=== PATIENT | male | born 1975 | race African-American/Black ===

== ENCOUNTER 2018-06-19 04:43 | Inpatient (IN) | payer MEDICARE, MEDICAID ==
[~2018-06-19] VITALS: Ht 170.2 cm; Wt 77.1 kg
[2018-06-19] MEDS ORDERED: AMLO2.5T2 PO (04:58)
[2018-06-19] MEDS ORDERED: ESOM40CA PO (04:58)
[2018-06-19] MEDS ORDERED: LACT10SO8 PO (04:58)
[2018-06-19] MEDS ORDERED: AMLO2.5T3 PO (04:58)
[2018-06-19 05:18] LABS: BASOPHILS % (AUTO) 1.2 % (0.0-2.0); EOSINOPHILS % (AUTO) 0.6 % (1.0-6.0); HEMATOCRIT 45.8 % (41-53); HEMOGLOBIN 15.6 g/dL (13.5-17.5); LYMPHOCYTES # (AUTO) 1.3 K/uL (1.0-4.8); MEAN CORPUSCULAR HEMOGLOBIN 31.2 pg (26.0-34.0); MEAN CORPUSCULAR HGB CONC 34.1 G/dL (31.0-37.0); MEAN CORPUSCULAR VOLUME 92 fL (80-100); MONOCYTES # (AUTO) 0.4 K/uL (0.1-1.0); MONOCYTES % (AUTO) 8.2 % (2.0-9.0); NEUTROPHILS # (AUTO) 3.1 K/uL (1.8-7.7); PLATELET COUNT (AUTO) 215 K/uL (150-450); RED CELL DISTRIBUTION WIDTH 14.8 % (11.5-14.5)
[2018-06-19 05:29] LABS: ANION GAP 5 mmol/L (8-16); CALCIUM, TOTAL 9.6 mg/dL (8.8-10.5); CARBON DIOXIDE 32 mmol/L (22-29); CHLORIDE 100 mmol/L (98-107); CREATININE 1.19 mg/dL (0.60-1.30); GLOMERULAR FILTR. RATE CALC > 60 mL/min (>60); GLUCOSE,RANDOM 87 mg/dL (70-110); SODIUM SERUM 137 mmol/L (136-145); UREA NITROGEN, BLOOD 10 mg/dL (7-18)
[2018-06-19 05:36] LABS: ALANINE AMINOTRANSFERASE 38 U/L (12-78); ALBUMIN 4.1 g/dL (3.4-5.0); ALKALINE PHOSPHATASE 64 U/L (46-116); ASPARTATE AMINOTRANSFERASE 28 U/L (15-37); BILIRUBIN,TOTAL 0.6 mg/dL (0.1-1.0); TOTAL PROTEIN, SERUM 8.2 g/dL (6.4-8.2)
[2018-06-19 06:05] LABS: AMPHET/METH SCREEN,URINE NEGATIVE (NEGATIVE); BARBITURATE SCREEN, URINE NEGATIVE (NEGATIVE); BENZODIAZEPINES SCREEN,URINE NEGATIVE (NEGATIVE); CANNABINOID SCREEN,URINE NEGATIVE (NEGATIVE); COCAINE SCREEN,URINE NEGATIVE (NEGATIVE); METHADONE SCREEN, URINE NEGATIVE (NEGATIVE); OPIATE SCREEN,URINE NEGATIVE (NEGATIVE); PHENCYCLIDINE SCREEN,URINE NEGATIVE (NEGATIVE)
[2018-06-19] MEDS ORDERED: HALOPERIDOL 5 MG TABLET PO PRN (07:30)
[2018-06-19] MEDS ORDERED: LORazepam 2 MG TABLET PO PRN (07:30)
[2018-06-19] MEDS ORDERED: ZOLPIDEM TARTRATE 10 MG TABLET PO PRN (07:30)
[2018-06-19 10:39] VITALS: BP 130/94
[2018-06-19] MEDS: MAGNESIUM HYDROXIDE SUSPENSION 30 ML UDCUP PO PRN (15:43)
[2018-06-19] MEDS: DOXEPIN HCL 25 MG CAPSULE PO SCH (19:58)
[2018-06-19 20:05] VITALS: BP 134/105
[2018-06-20] MEDS: MAGNESIUM HYDROXIDE SUSPENSION 30 ML UDCUP PO PRN (10:35)
[2018-06-20] MEDS: BENZONATATE 100 MG CAPSULE PO PRN (15:52)
[2018-06-20] MEDS: DOXEPIN HCL 25 MG CAPSULE PO SCH (20:34)
[2018-06-21] MEDS: BENZONATATE 100 MG CAPSULE PO PRN ×2 (04:27→14:20)
[2018-06-21] MEDS: MAGNESIUM HYDROXIDE SUSPENSION 30 ML UDCUP PO PRN (08:43)
[2018-06-21 10:44] VITALS: BP 115/101
[2018-06-21] MEDS ORDERED: HYDROCORTISONE 1% 30 GM CREAM TP PRN (11:30)
[2018-06-21] MEDS ORDERED: CloNIDine HCL 0.1 MG TABLET PO PRN (11:45)
[2018-06-21] MEDS ORDERED: HydrOXYzine PAMOATE 25 MG CAPSULE PO PRN (15:00)
[2018-06-21] MEDS ORDERED: PANTOPRAZOLE SODIUM 40 MG DR TABLET PO SCH (17:00)
[2018-06-21] MEDS: DOXEPIN HCL 25 MG CAPSULE PO SCH (20:19)
[2018-06-22] MEDS: BENZONATATE 100 MG CAPSULE PO PRN (04:51)
[2018-06-22] MEDS ORDERED: DOXE25 PO (07:49)
[2018-06-22] MEDS ORDERED: PANT40TA25 PO (07:50)
[2018-06-22] MEDS ORDERED: LACT30L PO (07:50)
[2018-06-22] MEDS ORDERED: LACTULOSE 20 GM/30 ML SOLUTION UDCUP PO SCH (09:00)
[2018-06-22] MEDS ORDERED: AmLODIPine BESYLATE 10 MG TABLET PO SCH ×2 (09:00→17:00)
[2018-06-22] MEDS ORDERED: AmLODIPine BESYLATE 2.5 MG TABLET PO SCH (09:00)
== END 2018-06-22 08:30 | disposition home or self-care (01) | DRG 885 ==
LOC: EMS 04:43 → 3EX 07:26
PROVIDERS: ADMIT Psychiatry & Neurology Psychiatry; ATTEND Psychiatry & Neurology Psychiatry
DX: F33.2 Major depressive disorder, recurrent severe without psychotic features (principal); R45.851 Suicidal ideations; L30.9 Dermatitis, unspecified; F17.210 Nicotine dependence, cigarettes, uncomplicated; I10 Essential (primary) hypertension; K21.9 Gastro-esophageal reflux disease without esophagitis; K59.00 Constipation, unspecified; F12.90 Cannabis use, unspecified, uncomplicated; Z59.0 Homelessness; Z91.19 Patient's noncompliance with other medical treatment and regimen; Z79.899 Other long term (current) drug therapy
CPT/HCPCS: G0378; G0480